=== PATIENT | male | born 1945 | race Caucasian/White ===

== ENCOUNTER 2020-11-23 16:23 | Emergency (ER) | payer OTHER ==
[~2020-11-23 16:23] MED LIST: AMLODIPINE BESYL5 MG PO; AMMONIUM LACTA140 GM TOP; ATORVASTATIN CA80 MG PO; BENADRYL25 MG PO; CIPROFLOXACIN250 MG PO; ETODOLAC400 MG PO; FINASTERIDE5 MG PO; FLOMAX 0.4 MG0.4 MG PO; GLUCOSAMINE R1000 MG PO; HYDROCHLOROTH12.5 M1 PO; LISINOPRIL40 MG PO; LOPRESSOR 25 MG25 MG PO; OMEGA-3 FISH1000 MG PO; ROPINIROLE HCL0.5 MG PO; VITAMIN D325 MCG PO; VOLTAREN100 GM TOP; ZETIA10 MG PO
[2020-11-23 18:05] LABS: HEMOGLOBIN 11.1 gm/dl (14.0-17.5); RED BLOOD COUNT 3.71 M/UL (4.20-5.50); WHITE BLOOD COUNT 10.4 K/UL (4.5-11.0)
[2020-11-23 18:22] LABS: BUN/CREATININE RATIO 28 (0-10)
[2020-11-24] MEDS ORDERED: COLACE 100MG C100 MG PO (00:54)
[2020-11-24] MEDS ORDERED: LOTRIMIN CREAM15 GM TP (01:14)
== END 2020-11-24 03:46 | disposition home or self-care (01) ==
LOC: ER1 16:23
PROVIDERS: Physician Assistant
DX: K59.00 Constipation, unspecified (principal); L89.152 Pressure ulcer of sacral region, stage 2; E11.9 Type 2 diabetes mellitus without complications; I10 Essential (primary) hypertension; I25.10 Atherosclerotic heart disease of native coronary artery without angina pectoris; Z95.5 Presence of coronary angioplasty implant and graft
CPT/HCPCS: 36415; 74018; 80053; 81001; 83690; 85025; 96374; 99284; J0696; Q9965